=== PATIENT | male | born 1945 | race Caucasian/White ===

== ENCOUNTER 2016-08-28 15:01 | Emergency (ER) | payer OTHER, BC ==
[~2016-08-28] VITALS: Ht 175.3 cm; Wt 100.0 kg
[2016-08-28 15:07] VITALS: TEMP 36.6; Ht 175.3 cm; Wt 100.0 kg
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
[2016-08-28] MEDS ORDERED: SODIUM CHLORIDE 0.9% 1000ML 1,000 ML IV STA (15:32)
[2016-08-28] MEDS ORDERED: ASPI325T39 PO (15:34)
[2016-08-28] MEDS ORDERED: KRIL1CAP24 PO (15:34)
[2016-08-28] MEDS ORDERED: CETI10TA84 PO (15:34)
[2016-08-28] MEDS ORDERED: SIMV10TA2 PO (15:34)
[2016-08-28] MEDS ORDERED: COEN150C PO (15:34)
[2016-08-28] MEDS ORDERED: METOPROLOL PO (15:34)
[2016-08-28] MEDS ORDERED: MULT-506 PO (15:34)
[2016-08-28] MEDS ORDERED: SALI1SPR3 NAE (15:35)
[2016-08-28] MEDS ORDERED: OPTIRAY 320 IV PRN (15:45)
[2016-08-28 16:12] VITALS: O2SAT 99
[2016-08-28] MEDS ORDERED: HYDROmorphone INJ 0.5 MG/0.5 ML SYR IV STA (16:16)
[2016-08-28] MEDS ORDERED: ONDANSETRON INJ 2 MG/ML 2 ML VIAL IV STA (16:17)
[2016-08-28 16:20] LABS: ISTAT CREATININE 1.1 mg/dl (0.6-1.3); ISTAT HEMOGLOBIN 16.3 g/dl (14.0-18.0); ISTAT IONIZED CALCIUM 1.2 mmol/l (1.12-1.32)
[2016-08-28 16:22] LABS: BASO % 0.2 %; BASO ABS # 0.03 K/uL (0-0.2); COMPLETE YES; EOS % 0.5 %; HEMATOCRIT 47.2 % (42-52); IG% 0.5 %; LYMPH % 6.6 %; MEAN CELL VOLUME 93.5 fL (80-100); MEAN CORPUSCULAR HEMOGLOBIN 31.7 pg (25-34); MEAN CORPUSCULAR HGB CONC 33.9 g/dl (32-36); MEAN PLATELET VOLUME 9.2 fL (7.4-10.4); MONO % 6.6 %; NEUT % 85.6 %; PLATELET COUNT 226 K/uL (130-400); RED BLOOD COUNT 5.05 M/uL (4.7-6.1); WHITE BLOOD COUNT 16.61 K/uL (4.8-10.8)
[2016-08-28 16:31] LABS: PROTHROMBIN TIME (PATIENT) 10.7 SECONDS (9.0-12.0)
[2016-08-28 16:45] LABS: ALT/SGPT 33 U/L (12-78); AST/SGOT 23 U/L (15-37); BLOOD UREA NITROGEN 22 mg/dl (7-18); BUN/CREATININE RATIO 16.9 (10-20); CALCIUM 8.7 mg/dl (8.5-10.1); CARBON DIOXIDE 30 mmol/L (21-32); CHLORIDE 107 mmol/L (98-107); GLUCOSE 102 mg/dl (70-99); POTASSIUM 4.2 mmol/L (3.5-5.1); SODIUM 143 mmol/L (136-145)
[2016-08-28 16:50] LABS: ALKALINE PHOSPHATASE 84 U/L (45-117); CKMB/CK RATIO 3.2 (0-3.0)
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
[2016-08-28] MEDS ORDERED: METOCLOPRAMIDE HCL INJ 5 MG/ML 2 ML VIAL ONE (17:42)
[2016-08-28 17:48] LABS: CKMB/CK RATIO 3.1 (0-3.0)
[2016-08-28 18:09] LABS: URINE APPEARANCE CLEAR (CLEAR); URINE BILIRUBIN NEG (NEG); URINE COLOR YELLOW; URINE NITRITE NEG (NEG); URINE PH 5.5 (4.5-7.5); URINE SPECIFIC GRAVITY > 1.045 (1.000-1.030); UROBILINOGEN NEG (NEG)
[2016-08-28 18:19] LABS: MANUAL MICROSCOPIC REQUIRED? NO; REVIEW REQ? NO
[2016-08-28 20:19] VITALS: BP 153/89; PULSE 72; O2SAT 99
== END 2016-08-28 20:19 | disposition short-term general hospital (02) ==
LOC: EDBD 15:01 → C.EDB 15:02
DX: V89.2XXA Person injured in unspecified motor-vehicle accident, traffic, initial encounter (principal); S20.20XA Contusion of thorax, unspecified, initial encounter; S27.329A Contusion of lung, unspecified, initial encounter; S22.019A Unspecified fracture of first thoracic vertebra, initial encounter for closed fracture; E78.5 Hyperlipidemia, unspecified; I10 Essential (primary) hypertension; Z79.82 Long term (current) use of aspirin

== ENCOUNTER → 2016-10-06 | Outpatient (CLI) | payer BC ==
[~2016-10-06] MED LIST: ASPI325T39 PO; CETI10TA84 PO; COEN150C PO; GADAVIST IV PRN; KRIL1CAP24 PO; METOPROLOL PO; MULT-506 PO; SALI1SPR3 NAE; SIMV10TA2 PO
--- NOTE | 2016-10-06 16:19 | DIAGNOSTIC IMAGING REPORT ---
MRI OF THE ABDOMEN COMBO CLINICAL HISTORY: Follow-up unspecified abnormal CT finding. Renal cyst. COMPARISON STUDY: Abdominal CT dated 08/28/2016. TECHNIQUE: MRI of the abdomen is performed transverse T1 and T2-weighted sequences in the axial and coronal planes. Contrast enhanced sequences were acquired following the IV administration of 10 cc of Gadavist. Subtraction imaging was performed. The examination is degraded by motion artifact. FINDINGS: Lower chest: No pleural effusion is identified. The heart is normal in size. There is a small hiatal hernia. Liver: The liver is normal in size, contour, and signal intensity. No intrahepatic biliary ductal dilatation is seen. The hepatic veins and portal veins are patent. Gallbladder: Unremarkable. Spleen: Normal in size and signal intensity. Pancreas: Unremarkable. Adrenal glands: Unremarkable. Kidneys: The kidneys demonstrate mild cortical atrophy and are without hydronephrosis. There are numerous bilateral parapelvic cysts. The kidneys enhance and excrete symmetrically. A 1.0 cm cortical cyst is seen in the left upper pole. A 0.7 cm exophytic cyst arises from the right upper pole. No enhancing renal mass is identified Bowel: Visualized portions of the small bowel and colon show no evidence of obstruction. A small duodenal diverticulum is noted. There is colonic fecal retention. Peritoneum: There is no abdominal ascites. Lymphadenopathy: None. Skeletal structures: Visualized skeletal structures times are normal marrow signal intensity. IMPRESSION: 1. No acute abnormality is identified. 2. There are small bilateral renal cortical and parapelvic cysts. 3. Colonic fecal retention. Electronically signed by: Moshe Hope M.D. 10/06/2016 4:16 PM Dictated Date/Time: 10/06/2016 4:06 PM
== END | disposition home or self-care (01) ==
LOC: C.MRIBC 13:38
PROVIDERS: ATTEND Internal Medicine
DX: R93.5 Abnormal findings on diagnostic imaging of other abdominal regions, including retroperitoneum (principal); K59.00 Constipation, unspecified

== ENCOUNTER → 2017-10-09 | Outpatient (CLI) | payer BC ==
[~2017-10-09] MED LIST changes: -GADAVIST IV PRN; +SALI-3 NAE; -SALI1SPR3 NAE
[2017-10-15 14:16] LABS: ANA SCREEN TC 249X NEGATIVE (NEGATIVE); ANTI-SS-A <1.0 NEG AI (<1.0 NEG); ANTI-SS-B <1.0 NEG AI (<1.0 NEG); COMPLEMENT C3 TC 44859W 109 MG/DL (90-180); COMPLEMENT C4 TC 44982E 17 MG/DL (16-47)
== END | disposition home or self-care (01) ==
LOC: C.LAB1850 14:32
PROVIDERS: ATTEND Internal Medicine Pulmonary Disease
DX: J84.9 Interstitial pulmonary disease, unspecified (principal)